=== PATIENT | male | born 1990 | race Caucasian/White ===

== ENCOUNTER 2017-06-25 14:04 | Emergency (ER) | payer BC, OTHER ==
[~2017-06-25] VITALS: Ht 170.2 cm; Wt 76.7 kg
[2017-06-25 14:07] VITALS: Ht 170.2 cm; Wt 76.7 kg
[2017-06-25] MEDS ORDERED: ALBUT/IPRATROP 3MG/0.5MG NEB 3 ML VIAL INH STA (14:24)
[2017-06-25] MEDS ORDERED: SODIUM CHLORIDE 0.9% 1000ML 1,000 ML IV STA (14:24)
[2017-06-25 15:00] LABS: BASO % 0.5 %; BASO ABS # 0.03 K/uL (0-0.2); COMPLETE YES; HEMATOCRIT 47.2 % (42-52); IG% 0.2 %; LYMPH % 29.4 %; LYMPH ABS # 1.79 K/uL (1.2-3.4); MEAN CELL VOLUME 89.1 fL (80-100); MEAN CORPUSCULAR HEMOGLOBIN 29.2 pg (25-34); MEAN CORPUSCULAR HGB CONC 32.8 g/dl (32-36); MEAN PLATELET VOLUME 10.7 fL (7.4-10.4); MONO % 8.4 %; NEUT % 58.5 %; PLATELET COUNT 244 K/uL (130-400); WHITE BLOOD COUNT 6.09 K/uL (4.8-10.8)
[2017-06-25 15:11] LABS: POINT OF CARE TROPONIN I < 0.030 ng/ml (0-0.045)
[2017-06-25 15:18] LABS: BUN/CREATININE RATIO 7.9 (10-20); CREATININE 0.99 mg/dl (0.60-1.40); POTASSIUM 3.6 mmol/L (3.5-5.1)
--- NOTE | 2017-06-25 15:46 | DIAGNOSTIC IMAGING REPORT ---
CHEST 2 VIEWS ROUTINE CLINICAL HISTORY: EVALUATE RESPIRATORY DISTRESS. DYSPNEA dyspnea COMPARISON STUDY: No previous studies for comparison. FINDINGS: Subtle interstitial and/or reticular nodular infiltrative change throughout the right and to a lesser extent left hemithorax. No evidence for cardiac enlargement. No evidence for consolidative infiltrate. Diaphragms smooth. IMPRESSION: 1. Interstitial/reticular nodular infiltrative change throughout the right and to lesser extent left hemithorax. 2. Although most likely inflammatory, follow-up to ensure complete resolution is suggested at later date. The above report was generated using voice recognition software. It may contain grammatical, syntax or spelling errors. Electronically signed by: Jonathon Dela Cruz M.D. 06/25/2017 3:45 PM Dictated Date/Time: 06/25/2017 3:44 PM
[2017-06-25] MEDS ORDERED: PRED20TA2 PO (15:54)
[2017-06-25] MEDS ORDERED: VNTHFA/IN INH (15:54)
[2017-06-25 16:16] VITALS: BP 126/66; PULSE 115; TEMP 36.7; O2SAT 98
--- NOTE | 2017-06-25 23:28 | EMERGENCY ROOM VISIT NOTE ---
ED Visit Note First contact with patient: 14:10 Chief Complaint: I have had a chest cold and been short of breath. History of Present Illness: Mr. Bunch is a 27-year-old white male who ambulates into the ED accompanied by his mother complaining of a chest cold for 3 months and shortness of breath intermittently for the last 3 weeks. Historically patient reports she has a history of asthma as a child. Review of Systems: As noted above in history of present illness. At least body systems were reviewed and found to be negative as noted above. Past Medical History: As previously noted, unspecified skin disorder. Current Medications: Allergies to Medications: Patient denies. Social History: Patient is currently employed; he feels safe in his home environment; he admits to tobacco and alcohol use. Physical Examination: Vital Signs: Date Time Temp Pulse Resp B/P (MAP) Pulse Ox O2 Delivery O2 Flow Rate FiO2 06/25/17 16:16 36.7 115 18 126/66 98 06/25/17 16:10 115 06/25/17 15:49 102 18 111/142 98 Room Air 06/25/17 14:10 99 Room Air 06/25/17 14:07 36.7 106 22 147/81 99 Room Air GENERAL: -year-old female in mild to moderate distress due to pain, nontoxic- appearing, afebrile and hemodynamically stable. NEUROLOGICAL: Awake, alert and oriented to person, place and time. Answering questions appropriately and following commands. Normal gait. Good hand eye coordination. No focal motor sensory deficits. SKIN: Warm, dry and pink. No soft tissue eruptions or trauma noted. HEENT: Atraumatic and normocephalic. PERRL. Sclera white and conjunctiva pink. No drainage from naris. Oral cavity moist and pink. Pharynx is nonerythematous or edematous. Speech normal. No lymphadenopathy. Trachea midline. No jugular venous distention. BACK: No tenderness over the bony spine. No CVA tenderness. THORAX: Lungs sounds are clear to auscultation and equal bilaterally with symmetrical chest wall. No wheezing, rales or rhonchi. No crepitus, tenderness , subcutaneous air or deformities noted. HEART: Regular rate and rhythm. No gallops, rubs or murmurs are appreciated. ABDOMEN: Flat, soft and nontender. Positive bowel sounds in all quadrants. No guarding, rigidity or organomegaly. EXTREMITIES: Moves all extremities well on command and with purpose. All distal neurovascular statuses are intact and equal bilaterally. No calf tenderness or cords. ED Course: Patient is assessed as noted above. Patient's medication list was reviewed. Laboratory Testing: Test 06/25/17 14:40 06/25/17 14:51 Range/Units White Blood Count 6.09 4.8-10.8 K/uL Red Blood Count 5.30 4.7-6.1 M/uL Hemoglobin 15.5 14.0-18.0 g/dL Hematocrit 47.2 42-52 % Mean Corpuscular Volume 89.1 80-100 fL Mean Corpuscular Hemoglobin 29.2 25-34 pg Mean Corpuscular Hemoglobin Concent 32.8 32-36 g/dl Platelet Count 244 130-400 K/uL Mean Platelet Volume 10.7 7.4-10.4 fL Neutrophils (%) (Auto) 58.5 % Lymphocytes (%) (Auto) 29.4 % Monocytes (%) (Auto) 8.4 % Eosinophils (%) (Auto) 3.0 % Basophils (%) (Auto) 0.5 % Neutrophils # (Auto) 3.57 1.4-6.5 K/uL Lymphocytes # (Auto) 1.79 1.2-3.4 K/uL Monocytes # (Auto) 0.51 0.11-0.59 K/uL Eosinophils # (Auto) 0.18 0-0.5 K/uL Basophils # (Auto) 0.03 0-0.2 K/uL RDW Standard Deviation 44.4 36.4-46.3 fL RDW Coefficient of Variation 13.5 11.5-14.5 % Immature Granulocyte % (Auto) 0.2 % Immature Granulocyte # (Auto) 0.01 0.00-0.02 K/uL Sodium Level 141 136-145 mmol/L Potassium Level 3.6 3.5-5.1 mmol/L Chloride Level 106 98-107 mmol/L Carbon Dioxide Level 27 21-32 mmol/L Anion Gap 8.0 3-11 mmol/L Blood Urea Nitrogen 8 7-18 mg/dl Creatinine 0.99 0.60-1.40 mg/dl Est Creatinine Clear Calc Drug Dose 105.7 ml/min Estimated GFR () 121.3 Estimated GFR (Non- 104.7 BUN/Creatinine Ratio 7.9 10-20 Random Glucose 90 70-99 mg/dl Calcium Level 9.0 8.5-10.1 mg/dl Bedside D-Dimer 235 0-450 ng/mlFEU Bedside Troponin I < 0.030 0-0.045 ng/ml Chest X-Rays: Were read by myself and the radiologist showing no acute infiltrates, effusions or pneumothorax. Normal heart silhouette and bony anatomy. Clinical Impression: Decision-Making: Disposition: Plan: Followup with family physician Return to the emergency department
--- NOTE | 2017-06-29 11:33 | EDITING REQUIRED CODING QUERY ---
TREATMENT RENDERED WITHOUT A DIAGNOSIS 91 To promote full compliance with coding requirements relating to patient care, physician participation is requested in all cases of middleware administrator uncertainty. Please assist us with the question(s) below: Coding Question: This patient received treatment from Orlando Cantrell PA-C in the emergency room on 06/25/17, can you please add a Clinical Impression for this patient Provider Response: Thank you Kat Hammonds
== END 2017-06-25 16:15 | disposition home or self-care (01) ==
LOC: C.EDB 14:06
DX: R06.02 Shortness of breath (principal); J45.909 Unspecified asthma, uncomplicated; Z87.2 Personal history of diseases of the skin and subcutaneous tissue; Z72.0 Tobacco use

== ENCOUNTER 2017-07-26 13:54 | Emergency (ER) | payer BC ==
[~2017-07-26] VITALS: Ht 170.2 cm; Wt 78.7 kg
[~2017-07-26 13:54] MED LIST: PRED20TA2 PO
[2017-07-26 13:57] VITALS: TEMP 36.7
[2017-07-26] MEDS ORDERED: METHYLPREDNISOLONE 125 MG VIAL IV STA (14:10)
[2017-07-26] MEDS ORDERED: SODIUM CHLORIDE 0.9% 1000ML 1,000 ML IV STA (14:10)
--- NOTE | 2017-07-26 14:13 | EMERGENCY ROOM VISIT NOTE ---
History First contact with patient: 14:05 Chief Complaint: RESPIRATORY DISTRESS Stated Complaint: HARD BREATHING NUMB BODY CHEST PAIN Nursing Triage Summary: I'm having trouble breathing, my face feels numb, I feel like I can't get a deep breath. I have a hx of asthma, I have been using nebulizers and my resuce inhalers and it's not helping. History of Present Illness The patient is a 27 year old male who presents to the Emergency Room with complaints of shortness of breath. The patient reports she has a history of asthma and was recently seen in the emergency department here prostate one month ago. The patient reports she has not done any better since that time. He denies any wheezing but feels like someone is sitting on his chest. He denies any fevers or chills. He finished his prednisone taper and has been using inhalers at home without relief. Patient has no other complaints. Review of Systems See HPI for pertinent positives & negatives. A total of 10 systems reviewed and were otherwise negative. Social History Smoking Status: Former Smoker Occupation Status: employed Current/Historical Medications Scheduled Albuterol Hfa (Ventolin Hfa), 2-4 PUFFS INH Q6H Prednisone (Prednisone Tab), 0 PO DAILY Physical Exam Vital Signs Date Time Temp Pulse Resp B/P (MAP) Pulse Ox O2 Delivery O2 Flow Rate FiO2 07/26/17 16:11 98 20 158/83 98 Room Air 07/26/17 15:04 99 Room Air Nebulizer 07/26/17 15:04 99 Room Air 07/26/17 14:51 86 07/26/17 14:45 107 22 147/87 96 Room Air 07/26/17 14:13 97 Room Air 07/26/17 14:01 99 Room Air 07/26/17 13:57 36.7 110 12 156/96 99 Room Air Physical Exam GENERAL: Patient is a healthy-appearing well-nourishedmale HEAD: Normocephalic atraumatic EYES: Ocular movements intact pupils equal and react to light OROPHARYNX mucous membranes are moist no exudates present no erythema or edema present NECK: Supple no nuchal rigidity, no stridor CHEST: Good equal expansion LUNGS: Clear and equal to auscultation, no exp wheezing present CARDIAC: Normal S1 and S2 ABDOMEN: Soft nontender no guarding BACK: No CVA tenderness EXTREMITIES: No pain upon palpation normal muscle strength in all groups no clubbing cyanosis or edema NEURO: Patient is following commands is answering questions appropriately. Alert and oriented x3 Cranial Nerves 2-12 grossly intact Medical Decision & Procedures ER Provider Diagnostic Interpretation: SINGLE VIEW CHEST CLINICAL HISTORY: Dyspnea. FINDINGS: An AP, portable, upright chest radiograph is compared to study dated 06/25/2017. The examination is degraded by portable technique and patient rotation. The cardiomediastinal silhouette is unremarkable. The lungs and pleural spaces are clear. No pneumothorax is seen. The bony thorax is grossly intact. IMPRESSION: No active disease in the chest. Electronically signed by: Ryan Silva M.D. 07/26/2017 2:40 PM Dictated Date/Time: 07/26/2017 2:40 PM Laboratory Results 07/26/17 14:25 Red Blood Count 5.36, Mean Corpuscular Volume 85.1, Mean Corpuscular Hemoglobin 30.0, Mean Corpuscular Hemoglobin Concent 35.3, Mean Platelet Volume 10.1, Neutrophils (%) (Auto) 48.5, Lymphocytes (%) (Auto) 35.0, Monocytes (%) (Auto) 12.8, Eosinophils (%) (Auto) 3.0, Basophils (%) (Auto) 0.6, Neutrophils # (Auto ) 3.88, Lymphocytes # (Auto) 2.80, Monocytes # (Auto) 1.02, Eosinophils # (Auto ) 0.24, Basophils # (Auto) 0.05 07/26/17 14:25 Test 07/26/17 14:25 07/26/17 14:31 07/26/17 14:33 07/26/17 14:41 White Blood Count 8.00 K/uL (4.8-10.8) Red Blood Count 5.36 M/uL (4.7-6.1) Hemoglobin 16.1 g/dL (14.0-18.0) Hematocrit 45.6 % (42-52) Mean Corpuscular Volume 85.1 fL (80-100) Mean Corpuscular Hemoglobin 30.0 pg (25-34) Mean Corpuscular Hemoglobin Concent 35.3 g/dl (32-36) Platelet Count 278 K/uL (130-400) Mean Platelet Volume 10.1 fL (7.4-10.4) Neutrophils (%) (Auto) 48.5 % Lymphocytes (%) (Auto) 35.0 % Monocytes (%) (Auto) 12.8 % Eosinophils (%) (Auto) 3.0 % Basophils (%) (Auto) 0.6 % Neutrophils # (Auto) 3.88 K/uL (1.4-6.5) Lymphocytes # (Auto) 2.80 K/uL (1.2-3.4) Monocytes # (Auto) 1.02 K/uL (0.11-0.59) Eosinophils # (Auto) 0.24 K/uL (0-0.5) Basophils # (Auto) 0.05 K/uL (0-0.2) RDW Standard Deviation 42.4 fL (36.4-46.3) RDW Coefficient of Variation 13.7 % (11.5-14.5) Immature Granulocyte % (Auto) 0.1 % Immature Granulocyte # (Auto) 0.01 K/uL (0.00-0.02) Est Creatinine Clear Calc Drug Dose 106.8 ml/min Estimated GFR () 122.8 Estimated GFR (Non- 106.0 BUN/Creatinine Ratio 11.9 (10-20) Calcium Level 8.9 mg/dl (8.5-10.1) Total Bilirubin 1.8 mg/dl (0.2-1) Aspartate Amino Transf (AST/SGOT) 29 U/L (15-37) Alanine Aminotransferase (ALT/SGPT) 52 U/L (12-78) Alkaline Phosphatase 55 U/L (45-117) Total Creatine Kinase 661 U/L (39-308) Creatine Kinase MB 3.5 ng/ml (0.5-3.6) Creatine Kinase MB Ratio 0.5 (0-3.0) Troponin I < 0.015 ng/ml (0-0.045) Total Protein 8.0 gm/dl (6.4-8.2) Albumin 4.5 gm/dl (3.4-5.0) Globulin 3.5 gm/dl (2.5-4.0) Albumin/Globulin Ratio 1.3 (0.9-2) Bedside Lactic Acid Venous 0.63 mmol/L (0.90-1.70) Bedside D-Dimer 176 ng/mlFEU (0-450) Bedside Hemoglobin 15.6 g/dl (14.0-18.0) Bedside Hematocrit 46 % (42-52) Bedside Sodium 139 mEq/L (135-144) Bedside Potassium 3.2 mEq/L (3.3-5.0) Bedside Chloride 105 mEq/L (101-112) Bedside Total CO2 23 mEq/l (24-31) Anion Gap 16.0 mmol/L (16-25) Bedside Blood Urea Nitrogen 11 mg/dl (7-18) Bedside Creatinine 1.0 mg/dl (0.6-1.3) Bedside Glucose (other) 91 mg/dl (70-99) Bedside Ionized Calcium (Seth) 1.12 mmol/l (1.12-1.32) Test 07/26/17 14:59 Influenza Type A (RT-PCR) Neg for Influ A (NEG) Influenza Type A Antigen Neg for Influ A (NEG) Influenza Type B Antigen Neg for Influ B (NEG) Influenza Type B (RT-PCR) Neg for Influ B (NEG) Medications Administered Medications (Trade) Dose Ordered Sig/Goldie Route Start Time Stop Time Status Last Admin Dose Admin Albuterol/ Ipratropium (Duoneb) 12 ml ONE ONCE INH 07/26/17 14:15 07/26/17 14:16 DC 07/26/17 14:53 12 ML Methylprednisolone Sodium Succinate (Solu-Medrol IV) 125 mg NOW STAT IV 07/26/17 14:10 07/26/17 14:12 DC 07/26/17 14:34 125 MG Sodium Chloride 1,000 ml @ 999 mls/hr Q1H1M STAT IV 07/26/17 14:10 07/26/17 15:10 DC 07/26/17 14:34 999 MLS/HR Albuterol (Ventolin Hfa Inhaler) 2 puffs NOW STAT INH 07/26/17 14:52 07/26/17 14:54 DC 07/26/17 16:08 2 PUFFS Potassium Chloride (Cristin Ciel Elix) 40 meq NOW STAT PO 07/26/17 14:57 07/26/17 14:58 DC 07/26/17 16:07 40 MEQ ECG Indication: SOB/dyspnea Rate (beats per minute): 81 Rhythm: normal sinus Findings: no acute ischemic change, no ectopy Medical Decision This is a 27-year-old male who presents emergency department complaining of breath. The patient reports he has been using an increase in his inhaler. I will note that the patient does not have any wheezing on my examination. The patient was seen approximately one month ago and had an x-ray performed here in emergency department was placed on prednisone for 4 days. I will note that he is in no acute distress and is satting 99% on room air. He is also not wheezing on physical examination. He has a normal EKG as above. A d-dimer was obtained which was also normal. The patient's potassium was repleted here in the emergency department. He was given an hour-long breathing treatment and started on Solu-Medrol. I do feel that the patient is well enough to be discharged home for follow-up with his primary care physician. Impression Primary Impression: Asthma with exacerbation Departure Information Dispostion Home / Self-Care Prescriptions Prednisone (Prednisone Tab) 20 Mg Tab 0 PO DAILY, #7 TAB 2 TABS DAILY FOR 2 DAYS, THEN 1 TAB DAILY FOR 2 DAYS, THEN 1/2 TAB DAILY FOR 2 DAYS. Prov: Randolph Harper MD 07/26/17 Referrals No Doctor, Assigned (PCP) Patient Instructions Asthma - [facility], COPD - [facility], Croup - [facility], My [facility] Problem Qualifiers Primary Impression: Asthma with exacerbation Asthma severity: mild Asthma persistence: unspecified Qualified Codes: J45.901 - Unspecified asthma with (acute) exacerbation
[2017-07-26] MEDS ORDERED: ALBUT/IPRATROP 3MG/0.5MG NEB 3 ML VIAL INH ONE (14:15)
[2017-07-26 14:37] LABS: BASO % 0.6 %; BASO ABS # 0.05 K/uL (0-0.2); COMPLETE YES; HEMATOCRIT 45.6 % (42-52); IG% 0.1 %; MEAN CELL VOLUME 85.1 fL (80-100); MEAN CORPUSCULAR HGB CONC 35.3 g/dl (32-36); MEAN PLATELET VOLUME 10.1 fL (7.4-10.4); MONO % 12.8 %; NEUT % 48.5 %; PLATELET COUNT 278 K/uL (130-400); RED BLOOD COUNT 5.36 M/uL (4.7-6.1)
[2017-07-26 14:40] VITALS: Ht 170.2 cm; Wt 78.7 kg
--- NOTE | 2017-07-26 14:41 | DIAGNOSTIC IMAGING REPORT ---
SINGLE VIEW CHEST CLINICAL HISTORY: Dyspnea. FINDINGS: An AP, portable, upright chest radiograph is compared to study dated 06/25/2017. The examination is degraded by portable technique and patient rotation. The cardiomediastinal silhouette is unremarkable. The lungs and pleural spaces are clear. No pneumothorax is seen. The bony thorax is grossly intact. IMPRESSION: No active disease in the chest. Electronically signed by: Ryan Silva M.D. 07/26/2017 2:40 PM Dictated Date/Time: 07/26/2017 2:40 PM
[2017-07-26] MEDS ORDERED: VNTHFA/IN INH (14:49)
[2017-07-26] MEDS ORDERED: ALBUTEROL HFA 8 GM INHALER INH STA (14:52)
[2017-07-26] MEDS ORDERED: PRED20TA2 PO (14:54)
[2017-07-26 14:56] LABS: ISTAT HEMOGLOBIN 15.6 g/dl (14.0-18.0); ISTAT IONIZED CALCIUM 1.12 mmol/l (1.12-1.32)
[2017-07-26] MEDS ORDERED: POTASSIUM CHLORIDE 20 MEQ/15 ML UDC PO STA (14:57)
[2017-07-26 15:04] VITALS: O2SAT 99
[2017-07-26 15:04] LABS: AST/SGOT 29 U/L (15-37); BLOOD UREA NITROGEN 12 mg/dl (7-18); BUN/CREATININE RATIO 11.9 (10-20); CALCIUM 8.9 mg/dl (8.5-10.1); CARBON DIOXIDE 25 mmol/L (21-32); CHLORIDE 104 mmol/L (98-107); CREATININE 0.98 mg/dl (0.60-1.40); GLUCOSE 101 mg/dl (70-99); POTASSIUM 3.4 mmol/L (3.5-5.1); SODIUM 138 mmol/L (136-145)
[2017-07-26 15:17] LABS: ALB/GLOB RATIO 1.3 (0.9-2); ALKALINE PHOSPHATASE 55 U/L (45-117); ALT/SGPT 52 U/L (12-78); CKMB/CK RATIO 0.5 (0-3.0)
[2017-07-26 16:11] VITALS: BP 158/83; PULSE 98; O2SAT 98
[2017-07-26 17:07] LABS: INFLUENZA A PCR Neg for Influ A (NEG); INFLUENZA B PCR Neg for Influ B (NEG)
== END 2017-07-26 16:35 | disposition home or self-care (01) ==
LOC: C.EDB 13:55
DX: J45.901 Unspecified asthma with (acute) exacerbation (principal); Z87.891 Personal history of nicotine dependence